=== PATIENT | female | born 1965 | race Caucasian/White ===

== ENCOUNTER 2024-03-14 07:05 | Day surgery (SDC) | payer OTHER ==
[~2024-03-14] VITALS: Ht 170.2 cm; Wt 100.0 kg
[~2024-03-14 07:05] MED LIST: SODIUM CHLORIDE 0.9% 1,000 ML ONE
[2024-03-14] MEDS ORDERED: BENZOCAINE 20% 50 MCG/SPRAY 57 GM TP ONE (07:06)
[2024-03-14] MEDS ORDERED: LIDOCAINE 4% 50 ML SOLUTION TP ONE (07:06)
[2024-03-14] MEDS ORDERED: FOLI-130 PO (07:51)
[2024-03-14] MEDS ORDERED: FLUT16SP NASAL (07:51)
[2024-03-14] MEDS ORDERED: AZEL137S8 NASAL (07:51)
[2024-03-14] MEDS ORDERED: MELO-107 PO (07:51)
[2024-03-14] MEDS ORDERED: GABA-1201 PO (07:51)
[2024-03-14] MEDS ORDERED: TRAM50TA5 PO (07:51)
[2024-03-14] MEDS ORDERED: LEVO100 PO (07:51)
[2024-03-14] MEDS ORDERED: LISINOPRIL-HCTZ PO (07:51)
[2024-03-14] MEDS ORDERED: AMLO-257 PO (07:51)
[2024-03-14] MEDS ORDERED: HYDR-3421 PO (07:51)
[2024-03-14] MEDS ORDERED: ACYC-138 PO (07:51)
[2024-03-14] MEDS ORDERED: CHOL200059 PO (07:51)
[2024-03-14] MEDS ORDERED: ATOR20TA65 PO (07:51)
[2024-03-14] MEDS ORDERED: UBRO100T PO (07:51)
[2024-03-14] MEDS ORDERED: GALC120S SQ (07:51)
[2024-03-14] MEDS ORDERED: PROM118S5 PO (07:51)
[2024-03-14] MEDS ORDERED: ALBU18HF7 IH (07:51)
[2024-03-14] MEDS ORDERED: DOCU-385 PO (07:51)
[2024-03-14] MEDS ORDERED: IPRAHFA IH ×2 (07:51)
[2024-03-14] MEDS ORDERED: OMEP20CA12 PO (07:51)
[2024-03-14] MEDS ORDERED: BUPR900F3 PO (07:51)
[2024-03-14] MEDS ORDERED: PROM25SU10 PR (07:51)
[2024-03-14] MEDS ORDERED: FLUT1BLS10 IH (07:51)
[2024-03-14] MEDS: SODIUM CHLORIDE 0.9% 1,000 ML IV ONE (07:57)
[2024-03-14] MEDS ORDERED: MIDAZOLAM HCL 2 MG/2 ML VIAL ONE (08:07)
[2024-03-14] MEDS ORDERED: FentaNYL CITRATE PF 100 MCG/2 ML VIAL ONE (08:08)
[2024-03-14 09:18] VITALS: PULSE 76; RESP 26; O2SAT 100
[2024-03-14] MEDS ORDERED: MethylPREDNISolone SOD SUCC 125 MG/2 ML VIAL ONE (10:15)
[2024-03-14] MEDS: MethylPREDNISolone SOD SUCC 125 MG/2 ML VIAL IVP ONE (10:18)
== END 2024-03-14 12:10 | disposition home or self-care (01) ==
LOC: SURGERY 07:05
PROVIDERS: ATTEND Internal Medicine Critical Care Medicine
DX: R05.3 Chronic cough (principal); R06.2 Wheezing; R49.0 Dysphonia; R04.2 Hemoptysis; R06.1 Stridor; R91.8 Other nonspecific abnormal finding of lung field; J38.4 Edema of larynx; B37.0 Candidal stomatitis; E78.00 Pure hypercholesterolemia, unspecified; E03.9 Hypothyroidism, unspecified; Z79.899 Other long term (current) drug therapy; Z98.890 Other specified postprocedural states; Z88.0 Allergy status to penicillin; Z91.040 Latex allergy status
CPT/HCPCS: 31623; 87206; 87101; 87220; 87070; 88108; 31624; 71045; 87015; J3010; J2250; J2919; J7030; Z7610